=== PATIENT | female | born 1960 | race Caucasian/White ===

== ENCOUNTER 2017-11-17 06:51 | Day surgery (SDC) | payer OTHER ==
[~2017-11-17 06:51] MED LIST: Lactated Ringers 1,000 ML IV SCH; Sodium Chloride 0.9% 10 ML Syringe FLUSH PRN; Sodium Chloride 0.9% 2.5 ML Syringe FLUSH PRN; ceFAZolin 1 GM in Premix Bag 1 BAG IV ONE
[2017-11-17] MEDS ORDERED: Rocuronium 10 MG/ML 10 ML Syringe ONE (07:09)
[2017-11-17] MEDS ORDERED: Ondansetron 4 MG/2 ML SDV ONE (07:09)
[2017-11-17] MEDS ORDERED: Lidocaine 2% 5 ML SDV ONE (07:09)
[2017-11-17] MEDS ORDERED: Propofol 200 MG/20 ML SDV ONE (07:10)
[2017-11-17] MEDS ORDERED: fentaNYL 100 MCG/2 ML SDV ONE ×2 (07:10→08:15)
[2017-11-17] MEDS ORDERED: Midazolam 1 MG/ML 2 ML SDV ONE (07:10)
[2017-11-17] MEDS ORDERED: ceFAZolin 1 GM Vial ONE (07:31)
[2017-11-17] MEDS ORDERED: Bupivacaine 0.5% 10 ML SDV ONE (07:31)
--- NOTE | 2017-11-17 07:44 | PCM.PREANE ---
Preanesthetic Assessment - Anesthesia/Transfusion/Family Hx Anesthesia History: Prior Anesthesia Without Reaction Family History of Anesthesia Reaction: No Transfusion History: No Prior Transfusion(s) - Review of Systems General: No Symptoms Pulmonary: No Symptoms Cardiovascular: No Symptoms Gastrointestinal: No Symptoms Neurological: No Symptoms Other: Reports: None - Physical Assessment NPO Status Date: 11/16/17 O2 Sat by Pulse Oximetry: 98 Respiratory Rate: 16 Vital Signs: Last Vital Signs Temp 36.1 C 11/17/17 06:59 Pulse 79 11/17/17 06:59 Resp 16 11/17/17 06:59 BP 112/62 11/17/17 06:59 Pulse Ox 98 11/17/17 06:59 Height: 1.63 m Weight: 60.781 kg ASA Class: 1 Mental Status: Alert & Oriented x3 Airway Class: Mallampati = 1 Dentition: Reports: Normal Dentition ROM/Head Extension: Full Lungs: Clear to Auscultation, Normal Respiratory Effort Cardiovascular: Regular Rate, Regular Rhythm - Allergies Allergies/Adverse Reactions: Allergies Allergy/AdvReac Type Severity Reaction Status Date / Time No Known Allergies Allergy Verified 11/14/17 09:29 - Anesthesia Plan Pre-Op Medication Ordered: None - Acknowledgements Anesthesia Type Planned: General Anesthesia Pt an Appropriate Candidate for the Planned Anesthesia: Yes Alternatives and Risks of Anesthesia Discussed w Pt/Guardian: Yes Pt/Guardian Understands and Agrees with Anesthesia Plan: Yes Additional Comments: PMH: thyroid replacement PreAnesthesia Questionnaire HEENT History: Reports: Other (See Below) Other HEENT History: wears glassses Gastrointestinal History: Reports: GERD Genitourinary History: Reports: None Musculoskeletal History: Reports: Arthritis, Back Pain, Chronic Psychiatric History: Reports: Anxiety Endocrine/Metabolic History: Reports: Hypothyroidism - Past Surgical History Head Surgeries/Procedures: Reports: None Female Surgical History: Reports: Hysterectomy Musculoskeletal Surgical History: Reports: Shoulder Surgery Other Musculoskeletal Surgeries/Procedures:: rt RTCR - SUBSTANCE USE Smoking Status *Q: Never Smoker Recreational Drug Use History: No - HOME MEDS Home Medications: Home Meds Estradiol [Yuvafem] 1 tab VAG ASDIRECTED PRN 11/14/17 [History] Levothyroxine Sodium [Synthroid] 100 mcg PO DAILY 11/14/17 [History] Omeprazole 1 tab PO ASDIRECTED PRN 11/14/17 [History] - CURRENT (IN HOUSE) MEDS Current Meds: Current Medications Lactated Ringer's (Ringers, Lactated) 1,000 mls @ 125 mls/hr IV ASDIRECTED KATHY Last Admin: 11/17/17 07:02 Dose: 125 mls/hr Sodium Chloride (Saline Flush) 10 ml FLUSH ASDIRECTED PRN PRN Reason: Keep Vein Open Sodium Chloride (Saline Flush) 2.5 ml FLUSH ASDIRECTED PRN PRN Reason: Keep Vein Open Discontinued Medications Fentanyl (Sublimaze) Confirm Administered Dose 100 mcg .ROUTE .STK-MED ONE Stop: 11/17/17 07:11 Cefazolin Sodium/Dextrose 1 gm (/ Premix) 50 mls @ 100 mls/hr IV ONETIME ONE Stop: 11/14/17 11:08 Lidocaine (Xylocaine-Mpf 2%) Confirm Administered Dose 5 ml .ROUTE .STK-MED ONE Stop: 11/17/17 07:10 Midazolam HCl (Versed 1 Mg/Ml) Confirm Administered Dose 2 mg .ROUTE .STK-MED ONE Stop: 11/17/17 07:11 Ondansetron HCl (Zofran) Confirm Administered Dose 4 mg .ROUTE .STK-MED ONE Stop: 11/17/17 07:10 Propofol (Diprivan 20 Ml) Confirm Administered Dose 200 mg .ROUTE .STK-MED ONE Stop: 11/17/17 07:11 Rocuronium Davis (Zemuron) Confirm Administered Dose 100 mg .ROUTE .STK-MED ONE Stop: 11/17/17 07:10
[2017-11-17] MEDS ORDERED: Ketorolac 30 MG/ML SDV ONE (08:10)
[2017-11-17] MEDS ORDERED: fentaNYL 100 MCG/2 ML SDV IVPUSH PRN (08:25)
--- NOTE | 2017-11-17 08:44 | PCM.OPNOTE ---
- General Post-Op/Procedure Note Date of Surgery/Procedure: 11/17/17 Operative Procedure(s): Open ventral hernia repair Findings: 2mm defect in the anterior abdominal wall fascia 7 cm above the umbilicus. Pre Op Diagnosis: Ventral hernia repair Post-Op Diagnosis: Ventral hernia repair Anesthesia Technique: General LMA Primary Surgeon: Nguyen VALDERRAMA in mLs: 10 Condition: Good
--- NOTE | 2017-11-17 09:18 | PCM.POSTAN ---
POST ANESTHESIA ASSESSMENT - MENTAL STATUS Mental Status: Alert, Oriented - RESPIRATORY Respiratory Status: Respiratory Rate WNL, Airway Patent, O2 Saturation Stable - CARDIOVASCULAR CV Status: Pulse Rate WNL, Blood Pressure Stable - GASTROINTESTINAL GI Status: No Symptoms - POST OP HYDRATION Hydration Status: Adequate & Stable
--- NOTE | 2017-11-17 09:18 | PCM48HPAN ---
Post Anesthesia Note - EVALUATION WITHIN 48HRS OF ANESTHETIC Vital Signs in Normal Range: Yes Patient Participated in Evaluation: Yes Respiratory Function Stable: Yes Airway Patent: Yes Cardiovascular Function Stable: Yes Hydration Status Stable: Yes Pain Control Satisfactory: Yes Nausea and Vomiting Control Satisfactory: Yes Mental Status Recovered: Yes Resp Rate: 14
--- NOTE | 2017-11-17 10:23 | OR ---
SURGEON: MATTHEW PELAEZ MD DATE OF PROCEDURE: 11/17/2017 PREOPERATIVE DIAGNOSIS: Ventral abdominal wall hernia. POSTOPERATIVE DIAGNOSIS: Ventral abdominal wall hernia. PROCEDURE PERFORMED: Open ventral hernia repair. ANESTHESIA: General LMA. FLUIDS: 900 mL of crystalloid. ESTIMATED BLOOD LOSS: 10 mL. FINDINGS: A 2 cm x 2.5 cm fat containing ventral abdominal wall hernia approximately 7 cm above the umbilicus. Fascial defect measured 2 mm in size. COMPLICATIONS: None. INDICATIONS: The patient is a 57-year-old female who was exercising when she noticed a lump in the epigastric area. Workup revealed an incarcerated fat containing ventral abdominal wall hernia. The patient and I discussed repair. We discussed the procedure, expected perioperative course, and the risks including bleeding, infection, or damage to surrounding structures. The patient verbalized understanding and wishes to proceed. PROCEDURE IN DETAIL: The patient was brought into the OR and placed on the OR table in a supine position. A time-out was completed verifying the patient's name, age, date of , allergies, and the procedure to be performed. General LMA anesthesia was induced. The abdomen was prepped and draped in the usual standard fashion. The mass was palpated in the epigastric area and the area overlying it was anesthetized with 0.5% Marcaine plain. An upper midline incision measuring approximately 4 cm was made using a #15 blade. Cautery was used to dissect down through the level of the subcutaneous fat until I reached the hernia sac. A combination of blunt and sharp dissection was used to clear away the subcutaneous fat from the hernia sac. The fascia was cleared away at the base of the hernia sac to reveal a 2-mm fascial defect. Cautery was used to resect this hernia sac and piece of fat at the level of the fascia allowing the remaining fat to retract into the abdomen. An 0 Ethibond suture was used to close the fascial defect. This was placed in a [id number] fashion. The hernia sac and fat contents were then sent to pathology labeled as hernia sac. The wound was then irrigated with normal saline. Hemostasis was achieved with cautery. The wound was then closed in layers. A running 3-0 Vicryl stitch was used to close the fat overlying the fascia. The fat just below the skin was closed with interrupted 3-0 Vicryl. The skin was then closed with a running 4-0 Monocryl stitch. Steri-Strips and sterile dressings were applied. The patient tolerated the procedure well and was taken to PACU in stable condition. LJ ROTHMAN /[id number]
== END 2017-11-17 10:01 | disposition home or self-care (01) ==
LOC: MW.SDS 06:51
PROVIDERS: ATTEND Surgery
DX: K43.9 Ventral hernia without obstruction or gangrene (principal); E03.9 Hypothyroidism, unspecified; K21.9 Gastro-esophageal reflux disease without esophagitis; F41.9 Anxiety disorder, unspecified; Z79.899 Other long term (current) drug therapy
CPT/HCPCS: 49560; J1885; J2250; J2405; J3010; J7120; J0690; J2704

== ENCOUNTER 2021-01-22 11:49 | Emergency (ER) | payer OTHER ==
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
[2021-01-22 12:53] LABS: ACETAMINOPHEN <2.0 ug/mL; BLOOD UREA NITROGEN,BUN 23 mg/dL (7.0-18.0); CARBON DIOXIDE,CO2 22.8 mmol/L (21.0-32.0); CHLORIDE,CL 104 mmol/L (98-107); GLUCOSE RANDOM 113 mg/dL (74-106); LIPASE 141 U/L (73-393); POTASSIUM,K 3.3 mmol/L (3.5-5.1); SODIUM,NA 141 mmol/L (136-145)
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
[2021-01-22] MEDS ORDERED: Sodium Chloride 0.9% 1,000 ML IV ONE (14:37)
== END 2021-01-22 16:40 | disposition home or self-care (01) ==
LOC: MW.ED 11:49
DX: F10.129 Alcohol abuse with intoxication, unspecified (principal); K21.9 Gastro-esophageal reflux disease without esophagitis; Y90.8 Blood alcohol level of 240 mg/100 ml or more; Z79.899 Other long term (current) drug therapy
CPT/HCPCS: 70450; 71045; 72125; 80053; 80143; 80179; 80305; 80307; 83690; 83735; 84100; 84484; 85025; 93005; 99285; J7030

== ENCOUNTER 2023-05-02 09:28 | Emergency (ER) | payer OTHER | END 2023-05-02 10:02 | disposition home or self-care (01) | LOC: MW.ED 09:28 | DX: H66.91 Otitis media, unspecified, right ear (principal); H60.91 Unspecified otitis externa, right ear; K21.9 Gastro-esophageal reflux disease without esophagitis; E03.9 Hypothyroidism, unspecified; Z79.899 Other long term (current) drug therapy | CPT/HCPCS: 99282; 99283 ==

== ENCOUNTER 2024-10-15 07:57 | Day surgery (SDC) | payer OTHER ==
[2024-10-15] MEDS ORDERED: Lidocaine 2% 5 ML SDV ONE (10:11)
[2024-10-15] MEDS ORDERED: propofoL 500 MG/50 ML 50 ML ONE (10:11)
[2024-10-15] MEDS: Lactated Ringers 1,000 ML IV SCH (10:20)
[2024-10-15] MEDS ORDERED: Propofol 200 MG/20 ML SDV ONE (11:59)
[2024-10-15] MEDS ORDERED: ePHEDrine 50 MG/ML SDV ONE (12:11)
[2024-10-15] MEDS ORDERED: Ondansetron 4 MG/2 ML SDV ONE (12:34)
[2024-10-15] MEDS ORDERED: Lactated Ringers 1,000 ML IV SCH (13:00)
== END 2024-10-15 13:30 | disposition home or self-care (01) ==
LOC: MW.SDS 07:57
PROVIDERS: ATTEND Surgery
DX: K29.50 Unspecified chronic gastritis without bleeding (principal); K21.00 Gastro-esophageal reflux disease with esophagitis, without bleeding; R19.4 Change in bowel habit; K57.30 Diverticulosis of large intestine without perforation or abscess without bleeding; K44.9 Diaphragmatic hernia without obstruction or gangrene; E03.9 Hypothyroidism, unspecified; Z79.899 Other long term (current) drug therapy; Z79.890 Hormone replacement therapy
CPT/HCPCS: 43239; 45378; J2003; J2405; J2704; J7120; 00813; J3490